=== PATIENT | female | born 1985 | race Caucasian/White ===

== ENCOUNTER 2023-04-07 20:58 | Outpatient (OUT) | payer BC, OTHER, SELFPAY ==
[2023-04-11 09:09] LABS: Age Gdln ACOG Testing Note (.); HPV Aptima Negative (Negative); IGP, Aptima HPV, rfx 16/18,45 Note (.)
== END 2023-04-07 20:59 | disposition home or self-care (01) ==
PROVIDERS: Visit Provider Obstetrics & Gynecology
DX: Z12.4 Encounter for screening for malignant neoplasm of cervix (principal); Z11.51 Encounter for screening for human papillomavirus (HPV)
CPT/HCPCS: 87624; G0145

== ENCOUNTER 2023-11-17 15:11 | Outpatient (OUT) | payer BC, SELFPAY ==
[2023-11-17 15:53] LABS: Anion Gap 11.3; Carbon Dioxide 29.2 mmol/L (21.0-32.0); Chloride 105 mmol/L (98-107); Glucose 81 mg/dL (74-106); Potassium 3.5 mmol/L (3.5-5.1); Sodium 142 mmol/L (136-145)
[2023-11-17 15:54] LABS: Alanine Aminotransferase 24 U/L (14-59); Albumin Globulin Ratio 0.9; Albumin Level 3.5 g/dL (3.4-5.0); Alkaline Phosphatase 74 U/L (46-116); Aspartate Amino Transferase 12 U/L (15-37); BUN Creatinine Ratio 10.1; Bilirubin Total 0.2 mg/dL (0.2-1.0); Calcium 8.6 mg/dL (8.5-10.1); Cholesterol 182 mg/dL (<=200); Estimated GFR (African America >60 (>=60); Estimated GFR (Non-African Ame >60 (>=60); Globulin 3.7 g/dL; Total Protein 7.2 g/dL (6.4-8.2); Triglycerides 152 mg/dL (<=150); VLDL CHOLESTEROL 30.4 mg/dL
[2023-11-17 15:55] LABS: Chol HDL Ratio 3.6; Estimated Average Glucose 100 mg/dL; Glycohemoglobin A1C 5.1 % (4.5-6.2); HDL Cholesterol 50 mg/dL (40-60); Thyroid Stimulating Hormone 6.794 uIU/mL (0.358-3.740)
== END 2023-11-17 15:12 | disposition home or self-care (01) ==
LOC: LAB 15:14
PROVIDERS: Visit Provider Psychiatry & Neurology Psychiatry
DX: Z79.899 Other long term (current) drug therapy (principal)
CPT/HCPCS: 36415; 80053; 80061; 83036; 84146; 84443

== ENCOUNTER 2023-12-05 15:23 | Outpatient (OUT) | payer BC, SELFPAY ==
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
[2023-12-07 08:08] LABS: Prolactin 24.9 ng/mL (4.8-33.4)
== END 2023-12-05 15:24 | disposition home or self-care (01) ==
PROVIDERS: Visit Provider Psychiatry & Neurology Psychiatry
DX: Z79.899 Other long term (current) drug therapy (principal); F31.9 Bipolar disorder, unspecified
CPT/HCPCS: 36415; 84146

== ENCOUNTER 2024-03-23 10:33 | Emergency (ER) | payer BC, SELFPAY ==
[2024-03-23 10:38] VITALS: BP 124/81; PULSE 83; TEMP 36.8; O2SAT 99; BMI 31.3
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
--- NOTE | 2024-03-23 11:57 | ED.GENADUL1 ---
HPI HPI - General Adult General Chief complaint: Extremity Injury, Upper Stated complaint: UPPER RIGHT EXTREMITY PAIN Time Seen by Provider: 03/23/24 10:36 Source: patient Mode of arrival: walk-in History of Present Illness HPI narrative: Patient presents to ED complaining of right shoulder pain. She said she was walking down the stairs yesterday and her flip-flop got caught on the stair and she slipped but grabbed the railing which pulled her shoulder kind of backwards. She has some pain to palpation on the anterior aspect of the shoulder. Pain with bicep movement and with extension of the shoulder. Denies fall or head trauma. No loss of consciousness. 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 No other complaints at this time Related Data Allergies Allergy/AdvReac Type Severity Reaction Status Date / Time No Known Drug Allergies Allergy Verified 03/23/24 10:41 Opioid HPI Opioid Management Most Recent Opioid Data: No Data to Display Review of Systems ROS Status of ROS 10 or more systems reviewed and unremarkable except as noted in history and below Exam Narrative Exam Narrative: General: alert, no acute distress Cardiovascular: regular rate and rhythm, normal peripheral perfusion. Respiratory: Lungs CTA, respirations non labored. Extremities: no deformity, Pain with palpation of the anterior right shoulder. Pain with bicep curl against resistance pain with shoulder extension against resistance. Normal distal pulses and strengthAnd sensation Neurological: oriented x 4, LOC appropriate for age. Constitutional Vital Signs, click to edit/add: Last Vital Signs Temp 98.2 F 03/23/24 10:38 Pulse 83 03/23/24 10:38 Resp 16 03/23/24 10:38 BP 124/81 03/23/24 10:38 Pulse Ox 99 03/23/24 10:38 O2 Del Method Room Air 03/23/24 10:46 Course Vital Signs Vital signs: Vital Signs Temperature 98.2 F 03/23/24 10:38 Pulse Rate 83 03/23/24 10:38 Respiratory Rate 16 03/23/24 10:38 Blood Pressure 124/81 03/23/24 10:38 Pulse Oximetry 99 03/23/24 10:38 Oxygen Delivery Method Room Air 03/23/24 10:38 Temperature 98.2 F 03/23/24 10:38 Pulse Rate 83 03/23/24 10:38 Respiratory Rate 16 03/23/24 10:38 Blood Pressure 124/81 03/23/24 10:38 Pulse Oximetry 99 03/23/24 10:38 Oxygen Delivery Method Room Air 03/23/24 10:46 Medical Decision Making MDM Narrative Medical decision making narrative: Most likely a biceps tendon strain biceps tendinitis. Patient will be placed in a sling for comfort instructed to take anti-inflammatories and ice the area. Rest the shoulder. Follow-up with family doctor if worsening symptoms otherwise return to ED if needed. Differential Diagnosis Differential Diagnosis: Shoulder sprain, biceps tendinitis, biceps tendon strain Medical Records Medical records reviewed: Yes I reviewed the patient's medical records Discharge Plan Discharge Stand Alone Forms: Portal Instructions Chief Complaint: Extremity Injury, Upper Clinical Impression: Biceps tendinitis of right shoulder Patient Disposition: Home, Self-Care Time of Disposition Decision: 11:02 Mode of Transportation: Private Vehicle Print Language: Malay Instructions: Tendinitis (ED) Referrals: Physician,Non-Staff, MD [Primary Care Provider] - 1 week Discharge Date/Time: 03/23/24 11:14
== END 2024-03-23 11:14 | disposition home or self-care (01) ==
PROVIDERS: Emergency Provider Emergency Medicine
DX: M75.21 Bicipital tendinitis, right shoulder (principal)
CPT/HCPCS: 99283

== ENCOUNTER 2025-02-24 10:18 | Outpatient (OUT) | payer OTHER, SELFPAY ==
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
--- OUTSIDE RECORDS SUMMARY | 2024-12-24 07:00 | XMS_ITS ---
Author Organization [facility] in [place] Address [address] [place] [address] Care Team Providers Care Ecommerce Project Manager Name Role Phone Nadine Mills Primary Care Provider REASON FOR VISIT 3 month f/u Encounters Encounter Location Date Provider Diagnosis [address] [place] [address] 12/24/2024 Nadine Mills Plan Of Treatment No Information Progress Notes * Adolph SENDOB:[birth year] (39 yo F)Acc No.[id number]:12/24/2024 UNLOCKED PROGRESS NOTE Progress Note Patient: Adolph AGUIRRE Provider: Benja CARTWRIGHT)JOSEPH :1985 A ge:39 Y S ex:Female Date:12/24/2024 Address:[address] [place] [address] Subjective: * Chief Complaints: * 1 . 3 month f/u. * Medical History: Objective: * Vitals: Assessment: Plan: * Treatment: * * Electronic signature of Radha Reagan NP, WINDOW INSTALLER.AIRCONDITIONING DRAFTING OFFICER.[id number] on 02/24/2025 at 10:20 AM EDT Sign off status: Pending Visit Status: C ANC (Cancelled) * Provider: Benja Mills CNP ([facility]) Date: 12/24/2024 Generated for Ashley ng/Faxing/eTransmitting on: 0 02/24/2025 10:20 AM EDT
--- OUTSIDE RECORDS SUMMARY | 2025-02-08 04:30 | XMS_ITS ---
Author Organization [facility] in [place] Address [address] [place] [address] Care Team Providers Care Dry Cleaning Manager Name Role Phone Nadine Mills Primary [...] Interpretation Negative Vital Signs Blood pressure systolic 128 mm Hg 02/09/20 25 Blood pressure diastolic 76 mm Hg 025 Height 65 in 02/08/2025 Weight 201.4 lbs 02/08/2025 BMI 33.51 kg/m2 02/08/2025 Encounters Encounter Location Date Provider Diagnosis [address] [address] 02/08/2025 Nadine Gene Anxiety F41.9 and Wellness [...] Next Appt Details Follow Up: 3 Months,prn, [place] son: Progress Notes * Adolph SENDOB:[birth year] (39 yo F)Acc No.[id number]:02/08/2025 Progress Note Patient: Adolph AGUIRRE Provider: Benja Mills ([facility]), INFORMATICS SCIENTIST :1985 A ge:39 Y S ex:Female Date:02/08/2025 Address:[address] [place] [address] Check In:08:32 AM ESTCheck O ut:09:02 AM [...] WITH DIFF * Preventive Medicine: Screenings/Counseling: B RI ACTION PLAN Above Normal BMI Follow-up D ietary management education, guidance, and counseling * Follow Up: 3 Months,prn * * Electronically signed by Lisa Mills , TATY, CERTIFIED FLIGHT INSTRUCTOR.INFORMATICS SCIENTIST.[id number] on 02/08/2025 at 02:04 PM EDT Sign off status: Completed Visit Status: C HK (Check Out) true * Provider: Benja Mills ([facility]), INFORMATICS SCIENTIST Date: 0 02/08/2025 Generated for Printi ng/Faxing/eTransmitting on: 0 02/24/2025 10:20 AM EDT History [...]
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
[2025-02-24 10:50] LABS: Basophils Absolute Auto 0.1 10^3/uL (0.0-0.1); Basophils Percent Auto 0.6 % (0.2-2.0); Eosinophils Absolute Auto 0.2 10^3/uL (0.0-0.7); Eosinophils Percent Auto 2.5 % (0.9-7.0); Hematocrit 39.9 % (36.0-48.0); Hemoglobin 13.3 g/dL (12.0-16.0); Immature Granulocytes Abs Auto 0.02 10^3/uL (0.00-0.03); Immature Granulocytes Pct Auto 0.2 % (0.0-0.5); Lymphocytes Absolute Auto 2.2 10^3/uL (1.2-3.8); Lymphocytes Percent Auto 27.4 % (20.5-60.0); Mean Corpuscular HGB Conc 33.3 g/dL (29.9-35.2); Mean Corpuscular Hemoglobin 28.2 pg (26.7-34.0); Mean Corpuscular Volume 84.7 fL (81.0-99.0); Mean Platelet Volume 9.2 fL (9.5-13.5); Monocytes Absolute Auto 0.7 10^3/uL (0.3-0.8); Neutrophils Percent Auto 61.3 % (43.0-75.0); Platelet Count 303 10^3/uL (150-450); Red Blood Count 4.71 10^6/uL (4.20-5.40); Red Cell Distribution Width 13.7 % (11.0-15.0); White Blood Count 8.1 10^3/uL (4.0-11.0)
[2025-02-24 12:19] LABS: Chol HDL Ratio 2.6; Cholesterol 187 mg/dL (<=200); Estimated Average Glucose 103 mg/dL; Glycohemoglobin A1C 5.2 % (4.5-6.2); HDL Cholesterol 72 mg/dL (40-60); Triglycerides 58 mg/dL (<=150); VLDL CHOLESTEROL 11.6 mg/dL
[2025-02-24 12:44] LABS: Alanine Aminotransferase 25 U/L (14-59); Albumin Globulin Ratio 1.1; Albumin Level 3.8 g/dL (3.4-5.0); Alkaline Phosphatase 77 U/L (46-116); Aspartate Amino Transferase 16 U/L (15-37); BUN Creatinine Ratio 23.4; Bilirubin Total 0.5 mg/dL (0.2-1.0); Calcium 9.1 mg/dL (8.5-10.1); Carbon Dioxide 28.5 mmol/L (21.0-32.0); Chloride 102 mmol/L (98-107); Estimated GFR (African America >60 (>=60 mL/min/1.73m^2); Estimated GFR (Non-African Ame >60 (>=60 mL/min/1.73m^2); Free T3 2.69 pg/mL (2.18-3.98); Globulin 3.6 g/dL; Glucose 90 mg/dL (74-106); Potassium 3.5 mmol/L (3.5-5.1); Sodium 141 mmol/L (136-145); Thyroid Stimulating Hormone 3.473 uIU/mL (0.358-3.740); Total Protein 7.4 g/dL (6.4-8.2)
[2025-02-25 05:08] LABS: Insulin 6.6 uIU/mL (2.6-24.9)
== END 2025-02-24 10:19 | disposition home or self-care (01) ==
LOC: LAB 10:18
PROVIDERS: PCP Nurse Practitioner Family; Visit Provider Nurse Practitioner Family
DX: Z00.00 Encounter for general adult medical examination without abnormal findings (principal)
CPT/HCPCS: 36415; 80053; 80061; 82306; 83036; 83525; 83540; 84436; 84443; 84481; 85025

== ENCOUNTER 2025-02-24 10:19 | Outpatient (OUT) | payer OTHER, SELFPAY ==
--- OUTSIDE RECORDS SUMMARY | 2025-02-24 10:21 | XMS_ITS | Clinical Summary ---
Author Organization [facility] Address [id number] [address] [id number] Care Team Providers Care Sample Room Supervisor Name Role Phone Unavailable Primary Care Provider Unavailabl e Social History Tobacco Use Types Packs/Day Years Used Date Smoking Tobacco: Never Assessed Childcare Answer Date Recorded Childcare Unknown 03/10/2019 Employment Answer Date Recorded Employment Unknown 03/10/2019 Comments Unknown Sex and Gender Information Value Date Recorded Sex Assigned at Not on file Legal Sex Female 12:01 PM EDT Gender Identity Not on file Sexual Orientation Not on file Plan of Treatment Not on file Medical Devices Not on file
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
[2025-02-24 12:30] LABS: Free T4 0.93 ng/dL (0.76-1.46)
[2025-02-25 06:08] LABS: Estradiol 14.1 pg/mL (.); Progesterone 0.1 ng/mL (.)
[2025-02-25 11:11] LABS: Sex Horm Binding Glob, Serum 52.5 nmol/L (24.6-122.0)
[2025-02-25 13:11] LABS: C-Peptide, Serum 2.3 ng/mL (1.1-4.4)
[2025-02-25 18:08] LABS: Thyroglobulin Antibody 44.6 IU/mL (0.0-0.9); Thyroid Peroxidase (TPO) Ab 323 IU/mL (0-34)
== END 2025-02-24 10:20 | disposition home or self-care (01) ==
LOC: LAB 10:20
PROVIDERS: PCP Nurse Practitioner Family; Visit Provider Obstetrics & Gynecology
DX: Z00.00 Encounter for general adult medical examination without abnormal findings (principal); R45.86 Emotional lability; E34.9 Endocrine disorder, unspecified
CPT/HCPCS: 36415; 80053; 80061; 82306; 82530; 82627; 82670; 82679; 82728; 83036; 83525; 83540; 84144; 84260; 84270; 84402; 84403; 84432; 84436; 84439; 84443; 84481; 84482; 84681; 85025; 86376; 86800

== ENCOUNTER 2025-03-22 12:27 | Outpatient (REF) | payer OTHER, SELFPAY ==
--- OUTSIDE RECORDS SUMMARY | 2025-02-08 04:30 | XMS_ITS ---
Author Organization [facility] in [place] Address [address] [place] [address] Care Team Providers Care Laundry Aide Name Role Phone Nadine Mills Primary Care Provider Allergies No Known Allergies REASON FOR VISIT Presents to office alone for a 3 month follow up on anxiety/depression. Stopped the Lexapro. Made her anxiety/depression worse. Medications Medication SIG (Take, Route, Fr equency, Duration) Notes Start Date End Date Status hydrOXYzine HCl 50 MG TAKE 1 TABLET BY M OUT FOUR TIMES A DAY NEEDED for 30 Act fabián Social History Tobacco Use: Social History Observation Description Date Details (start date - stop date) Never Smoker NA - NA Tobacco Control (Standard) Question Answer Notes Tobacco use: Nonsmoker AUDIT-C (Standard) Question Answer Notes Did you have a drink containing alcohol in the p ast year? No Points 0 Interpretation Negative Vital Signs Weight 201.4 lbs 02/08/2025 Height 65 in 02/08/2025 Blood pressure systolic 128 mm Hg 02/09/20 25 Blood pressure diastolic 76 mm Hg 025 BMI 33.51 kg/m2 02/08/2025 Encounters Encounter Location Date Provider Diagnosis [address] [place] [address] 02/08/2025 Nadine Gene Anxiety F41.9 and Wellness examination Z00.00 Assessments Encounter Date Diagnosis (ICD Code) Assessment Notes Treatment Notes Treatment Clinical Notes Section Notes 02/08/2025 Anxiety (ICD-10 - F41.9) stopped lexapro just taking hydroxyzine prn wants to just continue that for now handouts given encouraged to fu counseling, psych 02/08/2025 Wellness examination (ICD-10 - Z00.00) Plan Of Treatment Treatment Notes Assessment Notes Anxiety stopped lexapro just taking hydroxyzine prn wants to just continue that for now handouts given encouraged to fu counseling, psych Pending Test Test Name Order Date HEMOGLOBIN A1C (GLYCO) 02/08/2025 IRON, TOTAL 02/08/2025 LIPID PANEL (CHOL/TRIG/HDL/LDL) 02/09/20 25 VITAMIN D, 25 LEVEL (TOTAL) 02/08/2025 Insulin Level 02/08/2025 THYROID PANEL (T4/TSH/FREE T3) 5 CMP (COMP MET REEVES) w/eGFR CKD-EPI 2024 CBC WITH DIFF 02/08/2025 Next Appt Details Follow Up: 3 Months,prn, [place] son: Progress Notes * Adolph SENDOB:[birth year] (39 yo F)Acc No.[id number]:02/08/2025 Progress Note Patient: Adolph AGUIRRE Provider: Benja Mills ([facility]), LOAD CHECKER :1985 A ge:39 Y S ex:Female Date:02/08/2025 Address:[address] [place] [address] Check In:08:32 AM ESTCheck O ut:09:02 AM EST Subjective: * Chief Complaints: * 1 . Presents to office alone for a 3 month follow up on anxiety/depression. Stopped the Lexapro. Made her anxiety/depression worse.. * HPI: G eneral: stopped lexapro feels more present, less foggy getting more stuff done around house takes hydroxyzine resend labs, include Vit D has labs to do for Vanessa. * ROS: G eneral/Constitutional: Chronic fatigue a dmits. A nxiety a dmits some. F ever d enies. H eadache d enies. W eight loss d enies. O phthalmologic: Discharge d enies. E ye Pain d enies. I tching and redness d enies. E NT: Nasal discharge d enies. N elvin congestion d enies.?Sore throat d enies. C ardiovascular: Chest tightness/ [...] enies. S kin lesion(s) d enies. ? * Active Problem List F41.9 Anxiety Modified On:08/25/2024W/U Status:confirmed * Medical History: * Family History: F ather: alive. M [...] T aking hydrOXYzine HCl 50 MG Tablet TAKE 1 TABLET BY MOUTH FOUR TIMES A DAY NEEDED , Discontinued Amoxicillin 500 MG Capsule 1 capsule Orally every 8 hrs , Discontinued Lexapro(Escitalopram Oxalate) 20 MG Tablet 1 tablet Orally Once a day , Notes to Pharmacist: take 1/2 tablet po daily for first week than increase dose to 1 tablet po daily, Discontinued Mupirocin 2 % Ointment 1 application Externally Twice a day , Medication List reviewed and reconciled with the patient * Allergies: N .K.D.A. Objective: * Vitals: W t:201.4lbs, Ht: 65 in, BP:128/76mm Hg, BMI:33.51Index, Ht-cm: 165.1 cm, Wt-k.35 kg. * Examination: G eneral Examinations: GENERAL APPEARANCE: a lert and oriented, i n no acute distress. EYES: c onjunctiva normal, sclera non-icteric. NOSE: n ormal external appearance. LUNGS: c lear to auscultation bilaterally. CARDIO: r egular rate and rhythm, S1, S2 normal. MUSCULOSKELETAL: G ait and station normal. SKIN: w arm and dry. Assessment: * Assessment: 1. A nxiety - F41.9 (Primary) 2 . W ellness examination - Z00.00 Plan: * Treatment: 2. W ellness examination L AB: HEMOGLOBIN A1C (GLYCO) L AB: IRON, TOTAL L AB: LIPID PANEL (CHOL/TRIG/HDL/LDL) L AB: VITAMIN D, 25 LEVEL (TOTAL) L AB: Insulin Level L AB: THYROID PANEL (T4/TSH/FREE T3) L AB: CMP (COMP MET REEVES) w/eGFR CKD-EPI L AB: CBC WITH DIFF * Preventive Medicine: Screenings/Counseling: B [place] ACTION PLAN Above Normal BMI Follow-up D ietary management education, guidance, and counseling * Follow Up: 3 Months,prn * * Sign off status: Completed Visit Status: C HK (Check Out) true * Provider: Benja Mills ([facility]), LOAD CHECKER Date: 0 02/08/2025 Generated for Printi ng/Faxing/eTransmitting on: 0 03/22/2025 12:31 PM EDT History and Physical Notes * HPI (History of Present Illness) Category Sub-Category Detail Notes Category Not es General stopped lexapro feels more present, less foggy getting more stuff done around house takes hydroxyzine resend labs, include Vit D has labs to do for [place] Examination Category Sub-Category Detail Notes Category Not es General Examinations GENERAL APPEARANCE: alert a nd oriented, in no acute distress EYES: conjunctiva normal, sclera non-icteric EARS: NOSE: normal external appe arance THROAT: CARDIO: regular rate and rhy thm, S1, S2 normal LUNGS: clear to auscultatio n bilaterally ABDOMEN: SKIN: warm and dry BACK: MUSCULOSKELETAL: Gait and station nor mal LYMPH NODES:
--- OUTSIDE RECORDS SUMMARY | 2025-02-24 09:04 | XMS_ITS ---
Author Organization [facility] in [place] Address [address] [place] [address] Care Team Providers Care Correspondence Renew Clerk Name Role Phone Nadine Mills Primary Care Provider REASON FOR VISIT labs Medications Medication SIG (Take, Route, Frequency, Duration) Notes Start Date End Date Status Vitamin D3 50 MCG (1999 UT) 1 tablet Orally Once a day for 30 day(s) 02/24/2025 Active Problems Problem Type SNOMED Code ICD Code Onset Dates Problem Status W/U Status Risk Notes Problem Vitamin D deficiency (62697255) Vitamin D deficiency (E55.9) Active confirmed Encounters Encounter Location Date Provider Diagnosis [facility] [address] [place] [address] 02/24/2025 Nadine Mills Vitamin D deficiency E55.9 Assessments Encounter Date Diagnosis (ICD Code) Assessment Notes Treatment Notes Treatment Clinical Notes Section Notes 02/24/2025 Vitamin D deficiency (ICD-10 - E55.9) Plan Of Treatment Medication Medication Name Sig Start Date Stop Date Notes Vitamin D3 50 MCG (1999 UT) 1 tablet Ora lly Once a day for 30 day(s) 02/24/2025 Progress Notes * Adolph SENDOB:[birth year] (39 yo F)Acc No.[id number]:02/24/2025 Patient: Adolph AGUIRRE :1985 A ge:39 Y S ex:Female Address:[address] [place] [address], [address] * Refills Start Vitamin D3 Tablet, 50 MCG (1999 UT), Orally, 30, 1 tablet, Once a day, 30 day(s), Refills=11 Subjective: * Chief Complaints: * L abs * Medical History: * Surgical History: * Hospitalization/Major Diagno stic Procedure: * Medications: Objective: * Vitals: * Physical Examination: Assessment: * Assessment: 1. V itamin D deficiency - E55.9 (Primary) Plan: * Treatment: * Procedure Codes: * true * Date: Generated for Ashley messina/Alexandra/Brandyitting on: 0 03/22/2025 12:32 PM EDT
--- OUTSIDE RECORDS SUMMARY | 2025-03-01 09:04 | XMS_ITS ---
Author Organization [facility] in [place] Address [address] [place] [address] Care Team Providers Care Utility Engineer Name Role Phone Nadine Mills Primary Care Provider [phone] REASON FOR VISIT Labs Encounters Encounter Location Date Provider Diagnosis [address] [address] 03/01/2025 Nadine Mills Plan Of Treatment No Information Progress Notes * MCKINLEY AdolphDOB:[birth year] (39 yo F)Acc No.[id number]:03/01/2025 Patient: Adolph AGUIRRE :1985 A ge:39 Y S ex:Female Address:[address] [place] [address], [facility] * true * Date: Generated for Ashley messina/Alexandra/eTransmitting on: 0 03/22/2025 12:32 PM EDT
--- OUTSIDE RECORDS SUMMARY | 2025-03-22 12:32 | XMS_ITS | Patient Health Record ---
Author Organization [facility] in [place] Address [address] [place] [address] Care Team Providers Care Cardiac Exercise Physiologist Name Role Phone Lisa Millsela Primary Care Provider Allergies No Known Allergies Results Component Value Reference Range Notes FERRITIN Reviewed date:02/24/2025 01:04:17 PM Interpretation: Performing Lab: Notes/Report: [facility] , Ferritin 84.0 8.0-252.0 ng/mL Performing Lab: see note ML - [facility] FREE T3 Reviewed date:02/24/2025 01:04:17 PM Interpretation: Performing Lab: Notes/Report: [facility] T3 2.69 2.18-3.98 pg/mL Performing Lab: see note ML - [facility] FREE T4 Reviewed date:02/24/2025 01:04:17 PM Interpretation: Performing Lab: Notes/Report: [facility] Free T4 0.93 0.76-1.46 ng/dL Performing Lab: see note ML - [facility] LB GLYCOHEMOGLOBIN A1C Reviewed date:02/24/2025 01:04:17 PM Interpretation: Performing Lab: Notes/Report: [facility] , Glycohemoglobin A1C 5.2 4.5-6.2 % ADA THERAPEUTIC TARGET < 7.0 ACTION SUGGESTED > 7.0 ADA RECOMMENDED LIMIT 4.0 - 6.0 Estimated Average Glucose 103 Performing Lab: see note ML - [facility] LB IRON Reviewed date:02/24/2025 01:04:17 PM Interpretation: Performing Lab: Notes/Report: [facility] , Iron 70.0 50.0-170.0 ug/dL Performing Lab: see note ML - [facility] LB LIPID PROFILE Reviewed date:02/24/2025 01:04:17 PM Interpretation: Performing Lab: Notes/Report: [facility] , Triglycerides 58 <=150 mg/dL Cholesterol 187 <=200 mg/dL HDL Cholesterol 72 40-60 mg/dL > or =60 mg/dl - LOW CARDIOVASCULAR RISK <40 mg/dl - HIGH CARDIOVASCULAR RISK LDL Cholesterol Calculated 104.0 <100 mg/dl OPTIMAL 160-189 mg/dl HIGH 100-129 mg/dl NEAR OR ABOVE OPTIMAL 130-159 mg/dl BORDERLINE HIGH >190 mg/dl VERY HIGH VLDL CHOLESTEROL 11.6 Chol HDL Ratio 2.6 3.3 - 4.4 LOW RISK >11.0 HIGH RISK 4.4 - 7.1 AVERAGE RISK 7.1 - 11.0 MODERATE RISK Performing Lab: see note ML - [facility] LB PROF 14(COMP METB) Reviewed date:02/24/2025 01:04:17 PM Interpretation: Performing Lab: Notes/Report: [facility] , Sodium 141 136-145 mmol/L Potassium 3.5 3.5-5.1 mmol/L Chloride 102 98-107 mmol/L Carbon Dioxide 28.5 21.0-32.0 mmol/L Anion Gap 14.0 Glucose 90 74-106 mg/dL Blood Urea Nitrogen 15.0 7.0-18.0 mg/dL Creatinine 0.64 0.55-1.02 mg/dL Estimated GFR ( Lisa >60 >=60 mL/min/1.73m 2 Estimated GFR (Non- Maira >60 >=60 mL/min/1.73m 2 BUN Creatinine Ratio 23.4 Calcium 9.1 8.5-10.1 mg/dL Bilirubin Total 0.5 0.2-1.0 mg/dL Aspartate Amino Transferase 16 15-37 U/L Alanine Aminotransferase 25 14-59 U/L Alkaline Phosphatase 77 46-116 U/L Total Protein 7.4 6.4-8.2 g/dL Albumin Level 3.8 3.4-5.0 g/dL Globulin 3.6 Albumin Globulin Ratio 1.1 Performing Lab: see note ML - [facility] LB T4 Reviewed date:02/24/2025 01:04:17 PM Interpretation: Performing Lab: Notes/Report: [facility] , T4 Thyroxine 5.70 4.80-13.90 ug/dL Performing Lab: see note ML - [facility] LB THYROGLOBULIN Reviewed date:03/11/2025 12:17:49 PM Interpretation: Performing Lab: Notes/Report: [facility] , Thyroglobulin (TG-JOHN PAUL) 25 . ng/mL underwent thyroidectomy. TG reference intervals for these related to euthyroid patients and not for patients who by the Food and Drug Administration. [address] [place] [address] [phone] patients depend on the residual mass of the thyroid tissue Reference Range: and Adults: <40 left after surgery. Establishing a post-operative baseline Pubertal Children the reference interval for Thyroglobulin (TG) should be is recommended. The assay quantitation limit is 2.0 ng/mL. determined by [facility]. It has not been cleared or approved Performed at: [facility] This test was developed and its performance characteristics Electronic Technologist: Saleem Robertson MD, Phone: [phone] According to the National Academy of Clinical Biochemistry, Performing Lab: see note [facility] LB THYROID ANTIBODIES Reviewed date:02/28/2025 11:47:15 AM Interpretation: Performing Lab: Notes/Report: [facility] , Thyroid Peroxidase (TPO) Ab 323 0-34 IU/mL Thyroglobulin Antibody 44.6 0.0-0.9 IU/mL Methodology [address] [place] [address] [phone] to 4 IU/mL. at very low levels. The assay ladle puller has found that Performed at: [facility] four percent of individuals without evidence of thyroid It should be noted that the presence of thyroglobulin Electronic Technologist: Bobby Simpson PhD, Phone: [phone] disease or autoimmunity will have positive TgAb levels up antibodies may not be pathogenic nor diagnostic, especially Thyroglobulin Antibody measured by [facility] Performing Lab: see note [facility] LB TSH Reviewed date:02/24/2025 01:04:17 PM Interpretation: Performing Lab: Notes/Report: [facility] , Thyroid Stimulating Hormone 3.473 0.358-3.740 u IU/mL Performing Lab: see note ML - [facility] LB Progesterone Reviewed date:02/28/2025 11:47:15 AM Interpretation: Performing Lab: Notes/Report: [facility] , Progesterone 0.1 . ng/mL Third trimester 58.7 - 214.[address] [place] [address] [phone] Postmenopausal 0.0 - 0.1 Electronic Technologist: Bobby Simpson PhD, Phone: [phone] Luteal phase 1.8 - 23.9 First trimester 11.0 - 44.3 Ovulation phase 0.1 - 12.0 Second trimester 25.4 - 83.3 Follicular phase 0.1 - 0.9 Performed at: [facility] Performing Lab: see note [facility] LB Estradiol Reviewed date:02/28/2025 11:47:15 AM Interpretation: Performing Lab: Notes/Report: [facility] , Estradiol 14.1 . pg/mL Marck ECLIA methodology Ovulation phase 85.8 - 498.0 1st trimester 215.0 - >4300.0 Adult Female Range Luteal phase 43.8 - 211.0 Follicular phase 12.5 - 166.0 Postmenopausal <6.0 - 54.7 Performing Lab: see note [facility] LB Sex Horm Binding Glob, Serum Reviewed date:02/28/2025 11:47:15 AM Interpretation: Performing Lab: Notes/Report: [facility] , Sex Horm Binding Glob, Serum 52.5 24.6-122.0 n mol/L Performed at: [address] [id number] Electronic Technologist: Bobby Simpson PhD, Phone: [phone] Performing Lab: see note [facility] LB Testosterone,Free and Total Reviewed date:02/28/2025 11:47:15 AM Interpretation: Performing Lab: Notes/Report: [facility] , Testosterone 14 8-60 ng/dL Free Testosterone(Direct) 0.5 0.0-4.2 pg/mL [address] [place] [address] [id number] Electronic Technologist: Bobby Simpson PhD, Phone: [phone] Performed at: [facility] Electronic Technologist: Mildred Garcia MD, Phone: [phone] [address] [place] [address] [phone] Performed at: [facility] Performing Lab: see note [facility] LB C-Peptide, Serum Reviewed date:03/02/2025 10:19:00 AM Interpretation: Performing Lab: Notes/Report: [facility] , C-Peptide, Serum 2.3 1.1-4.4 ng/mL Electronic Technologist: Bobby Simpson PhD, Phone: [phone] C-Peptide reference interval is for fasting patients. Performed at: [address] [id number] Performing Lab: see note - [facility] LB Cortisol, Free Dialysis, LCM S Reviewed date:03/11/2025 12:17:49 PM Interpretation: Performing Lab: Notes/Report: [facility] , Cortisol, Free Dialysis, LCMS 0.172 . ug/dL characteristics determined by [facility]. They have not been Reference Range: Electronic Technologist: Saleem Robertson MD, Phone: [phone] Performed at: [facility] [address] [place] [address] [phone] cleared or approved by the Food and Drug Administration. 8 AM 0.10 - 1.20 4 PM 0.042 - 0.872 These tests were developed and their performance Performing Lab: see note [facility] LB DHEA-Sulfate Reviewed date:02/28/2025 11:47:15 AM Interpretation: Performing Lab: Notes/Report: [facility] , DHEA-Sulfate 128.0 57.3-279.2 ug/dL Performing Lab: see note [facility] LB Reverse T3, Serum Reviewed date:02/28/2025 11:47:15 AM Interpretation: Performing Lab: Notes/Report: [facility] , Reverse T3, Serum 12.1 9.2-24.1 ng/dL Performed at: [facility] This test was developed and its performance characteristics determined by [facility]. It has not been cleared or [address], [place] [id number] approved by the Food and Drug Administration. Electronic Technologist: Mildred Garcia MD, Phone: [phone] Performing Lab: see note [facility] LB Serotonin, Serum Reviewed date:02/28/2025 11:47:15 AM Interpretation: Performing Lab: Notes/Report: [facility] , Serotonin, Serum 65 31-207 ng/mL Performed at: [facility] This test was developed and its performance characteristics [address], [place] [id number] determined by [facility]. It has not been cleared or approved by the Food and Drug Administration. Electronic Technologist: Mildred Garcia MD, Phone: [phone] Performing Lab: see note [facility] LB VITAMIN D 25 [place] Reviewed date:02/24/2025 01:25:20 PM Interpretation: Performing Lab: Notes/Report: [facility] , Vitamin D 19.7 >100 ng/mL Potential Toxicity 30-100 ng/mL Vit D sufficient <20 ng/mL Vit D deficient 20-<30 ng/mL Vit D insufficient Performing Lab: see note - [facility] LB INSULIN Reviewed date:02/25/2025 12:40:59 PM Interpretation: Performing Lab: Notes/Report: [facility] , Insulin 6.6 2.6-24.9 uIU/mL [address] [place] [address] [id number] Electronic Technologist: Bobby Simpson PhD, Phone: [phone] Performed at: [facility] Performing Lab: see note [facility] ESTRONE Reviewed date:03/02/2025 10:19:10 AM Interpretation: Performing Lab: Notes/Report: [facility] , Estrone, Serum 33 27-231 pg/mL Electronic Technologist: Mildred Garcia MD, Phone: [phone] Menstrual Cycle (1-10 days) 19 - 149 Performed at: [facility] Menstrual Cycle (21-30 days) 37 - 200 Adult (Premenopausal) 27 - 231 Range Menstrual Cycle (11-20 days) 32 - 176 [address], [place] [id number] Performing Lab: see note [facility] CBC AUTO DIFF Reviewed date:02/24/2025 01:04:17 PM Interpretation: Performing Lab: Notes/Report: [facility] , White Blood Count 8.1 4.0-11.0 10 3/uL Red Blood Count 4.71 4.20-5.40 10 6/uL Hemoglobin 13.3 12.0-16.0 g/dL Hematocrit 39.9 36.0-48.0 % Mean Corpuscular Volume 84.7 81.0-99.0 fL Mean Corpuscular Hemoglobin 28.2 26.7-34.0 pg Mean Corpuscular HGB Conc 33.3 29.9-35.2 g/dL Red Cell Distribution Width 13.7 11.0-15.0 % Platelet Count 303 150-450 10 3/uL Mean Platelet Volume 9.2 9.5-13.5 fL Neutrophils Percent Auto 61.3 43.0-75.0 % Lymphocytes Percent Auto 27.4 20.5-60.0 % Monocytes Percent Auto 8.0 1.7-12.0 % Eosinophils Percent Auto 2.5 0.9-7.0 % Basophils Percent Auto 0.6 0.2-2.0 % Immature Granulocytes Pct Auto 0.2 0.0-0.5 % Neutrophils Absolute Auto 5.0 1.4-6.5 10 3/uL Lymphocytes Absolute Auto 2.2 1.2-3.8 10 3/uL Monocytes Absolute Auto 0.7 0.3-0.8 10 3/uL Eosinophils Absolute Auto 0.2 0.0-0.7 10 3/uL Basophils Absolute Auto 0.1 0.0-0.1 10 3/uL Immature Granulocytes Abs Auto 0.02 0.00-0.03 10 3/uL Performing Lab: see note ML - [facility] LB Reason For Referral Reason ganglion cyst left w rist Diagnosis 1 Ganglion cyst (M67.4 0) Referral Organization [facility] Referring Provider First Name Nadine Referring Provider Last Name Gene Referring Provider Speciality [facility] adriana Referred Provider Deon Vazquez Referred Provider Specialty Orthopedic S urgery Referral Priority Routine Medications Medication SIG (Take, Route, Frequency, Duration) Notes Start Date End Date Status hydrOXYzine HCl 50 MG TAKE 1 TABLET BY M OUTH FOUR TIMES A DAY NEEDED for 30 Active Vitamin D3 50 MCG (1999) 1 tablet Ora lly Once a day for 30 day(s) 02/24/2025 Active Social History Tobacco Use: Social History [...] Status W/U Status Risk Notes Problem Anxiety (93815273) Anxiety (F41.9) Active confirmed Problem Vitamin D deficiency (E55.9) Active confirmed Vital Signs Blood pressure diastolic 76 mm Hg 02/08/2025 Height 65 in 02/08/2025 Blood pressure systolic 128 mm Hg 02/08/2025 Weight 201.4 lbs 02/08/2025 BMI 33.51 kg/m2 02/08/2025 Encounters Encounter Location Date Provider Diagnosis [facility] [address] [place] [address] 08/25/2024 Nadine Mills Anxiety F41.9 ; Wellness examination Z00.00 and Left wrist pain M25.532 [address] [place] [address] 09/27/2024 Nadine Mills Anxiety F41.[address] [address] 11/11/2024 Nadine Mills Anxiety F41.9 ; Jaw pain R68.84 and Ganglion cyst M67.40 [address] [place] [address] 02/08/2025 Nadine Mills Anxiety F41.9 and Wellness examination Z00.00 [address] [place] [address] 12/02/2024 Nadine Mills Jaw pain R68.84 ; Skin lesion L98.9 ; Ganglion cyst M67.40 and Anxiety F41.9 [facility] [address] [facility] [place] [place] [address] 08/25/2024 Nadine Mills [facility] [address] [facility] [place] [place] [address] 10/12/2024 Nadine Mills Anxiety F41.9 [address] [place] [place] [address] 11/01/2024 Nadine Mills [facility] [address] [place] [address] 02/24/2025 Nadine Mills Vitamin D deficiency E55.9 [address] [place] [address] 03/01/2025 Nadine Mills Assessments Encounter Date Diagnosis (ICD Code) Assessment Notes Treatment Notes Treatment Clinical Notes Section Notes 08/25/2024 Wellness examination (ICD-10 - Z00.00) ROS done exam done encouraged pap, mammogram - turns 39 in 09/27/2024 Anxiety (ICD-10 - F41.9) increase lexapro dose encouraged counseling, fu Nia planning to do so in Sep when gets insurance fu 1-3 months 11/11/2024 Jaw pain (ICD-10 - R68.84) dentist fu 11/11/2024 Anxiety (ICD-10 - F41.9) continue lexapro recommend counseling, [facility] will call [address] 02/08/2025 Anxiety (ICD-10 - F41.9) stopped lexapro just taking hydroxyzine prn wants to just continue that for now handouts given encouraged to fu counseling, psych 02/08/2025 Wellness examination (ICD-10 - Z00.00) 12/02/2024 Jaw pain (ICD-10 - R68.84) poor dentition needs teeth pulled, encouraged dental fu varun 08/25/2024 Anxiety (ICD-10 - F41.9) waiting on insurance to get back in with Dr Kramer and counseling start lexapro , refill vistaril in meantime fu 1 month denies SI , depression also 12/02/2024 Skin lesion (ICD-10 - L98.9) 10/12/2024 Anxiety (ICD-10 - F41.9) 02/24/2025 Vitamin D deficiency (ICD-10 - E55.9) 12/02/2024 Ganglion cyst (ICD-10 - M67.40) 08/25/2024 Left wrist pain (ICD-10 - M25.532) NSAIDS, brace, rest imaging, referral when gets insurance if needed 11/11/2024 Ganglion cyst (ICD-10 - M67.40) discussed [...] Name Order Date CMP (COMPLETE METABOLIC PANEL) 11/27/202 4 HEMOGLOBIN A1C (GLYCO) 08/25/2024 HEMOGLOBIN A1C [...] Coverage End Date [employer] [address] [address] [place] [address] [id number] Adolph Gabriel od Self - patient is the insured
[2025-03-25 21:07] LABS: Age Gdln ACOG Testing Note (.); HPV Aptima Positive (Negative); HPV Genotype 16 Negative (Negative); HPV Genotype 18,45 Negative (Negative); IGP, Aptima HPV, rfx 16/18,45 Note (.)
== END 2025-03-22 12:28 | disposition home or self-care (01) ==
LOC: LAB 12:27
PROVIDERS: PCP Nurse Practitioner Family; Visit Provider Obstetrics & Gynecology
DX: Z01.419 Encounter for gynecological examination (general) (routine) without abnormal findings (principal)
CPT/HCPCS: 87624; 87625; 88175